=== PATIENT | male | born 1935 | race Caucasian/White ===

== ENCOUNTER 2018-03-20 01:10 | Inpatient (IN) | payer MEDICARE, BC ==
[2018-03-20 03:36] VITALS: BMI 29.8
[2018-03-20] MEDS ORDERED: Ondansetron ODT 4 MG TAB PO PRN (05:33)
[2018-03-20] MEDS ORDERED: Acetaminophen 325 MG TAB PO PRN (05:33)
[2018-03-20] MEDS: Gabapentin 300 MG CAP PO SCH ×3 (08:38→20:54)
[2018-03-20] MEDS: Enoxaparin Sodium 40 MG/0.4 ML SYRINGE SC SCH (08:38)
[2018-03-20] MEDS ORDERED: Aspirin 300 MG Suppository PR SCH (09:00)
[2018-03-20] MEDS ORDERED: Aspirin 81 mg Enteric Coated Tablet PO SCH ×2 (10:24→11:00)
[2018-03-20] MEDS: chlorproMAZINE HCl 25 MG TAB PO SCH (11:03)
--- NOTE | 2018-03-20 14:00 | PDOC.PN ---
- Subjective Encounter Start Date: 03/20/18 Encounter Start Time: 13:59 Patient yling in bed with family at bedside. He reports doing well this morning , no pain. Weakness noted on right side. CT showed chronic changes, no acute abnormality. - Objective Resuscitation Status - Order Detail: 03/20/18 05:33 Resuscitation Status Routine Resuscitation Status: DNAR: NO Resuscitation Discussed with: discussed with pt , as per pt wishes MAR Reviewed: Yes Vital Signs & Weight: Vital Signs (12 hours) Temp Pulse Pulse Pulse Resp BP BP 03/20/18 11:00 97.6 F 90 16 03/20/18 10:52 65 145/73 H 03/20/18 10:40 61 65 144/68 H 145/73 H 03/20/18 08:38 03/20/18 07:38 97.5 F L 93 16 03/20/18 05:25 97.8 F 66 20 03/20/18 02:30 98 F 76 20 BP Pulse Ox 03/20/18 11:00 132/68 97 03/20/18 10:52 03/20/18 10:40 03/20/18 08:38 96 03/20/18 07:38 139/79 96 03/20/18 05:25 183/89 H 98 03/20/18 02:30 157/91 H 98 Weight Weight 202 lb Radiology Reviewed by me: Yes Phys Exam - Physical Examination Constitutional: NAD HEENT: PERRLA, oral pharynx no lesions, 2+ tonsils Facial droop noted Neck: no nodes, no JVD, supple Respiratory: no wheezing, no rales, no rhonchi Cardiovascular: RRR, no significant murmur, no rub Gastrointestinal: soft, non-tender, no distention, positive bowel sounds Musculoskeletal: no edema, pulses present Neurological: normal sensation, moves all 4 limbs Weakness noted right side strength 3+ Lymphatic: no nodes Psychiatric: normal affect, A&O x 3 Skin: no rash, normal turgor, cap refill <2 seconds Dx/Plan (1) BPH (benign prostatic hyperplasia) Code(s): N40.0 - BENIGN PROSTATIC HYPERPLASIA WITHOUT LOWER URINRY TRACT SYMP Status: Acute (2) DJD (degenerative joint disease) Code(s): M19.90 - UNSPECIFIED OSTEOARTHRITIS, UNSPECIFIED SITE Status: Acute (3) HTN (hypertension) Code(s): I10 - ESSENTIAL (PRIMARY) HYPERTENSION Status: Acute (4) Left sided cerebral hemisphere cerebrovascular accident Code(s): I63.9 - CEREBRAL INFARCTION, UNSPECIFIED Status: Acute - Plan cont current plan of care, plan discussed w/ family, PT/OT, DVT proph w/lovenox * Continue on aspirin therapy, he is refusing statin at this time * Neurology services consulted * Await carotid doppler, echo and MRI brain * Further workup and/or management pending workup results * Continue home regimen for BP and other underlying conditions * Patient remains DNR * Palliative care consulted * PT/OT
--- NOTE | 2018-03-20 15:43 | ULT ---
CAROTID ULTRASOUND WITH WHARTON SCALE AND DOPPLER DUPLEX COLOR FLOW IMAGING SPECTRAL ANALYSIS PERFORMED: DATE: 03/20/18 Reference made to 06/19/14 exam. CLINICAL HISTORY: 83-year-old male with history of TIA/CVA. FINDINGS: There is scattered moderate atherosclerotic calcification of the carotid arteries. PEAK SYSTOLIC VELOCITY (CM/S): Right CCA 67 Left CCA 95 Right ICA 103 Left ICA 135 There is antegrade flow within the visualized bilateral vertebral arteries. IMPRESSION: 1. Mild stenosis of the right internal carotid artery. 2. Moderate (50-69%) stenosis of the left internal carotid artery. As clinically indicated, these findings may be further assessed with dedicated CTA or MRA of the neck to further evaluate. POS: [facility]
[2018-03-20] MEDS: Clopidogrel Bisulfate 75 MG TAB PO SCH (16:55)
--- NOTE | 2018-03-20 17:15 | MRI ---
MRI BRAIN WITH AND WITHOUT IV CONTRAST: 03/20/2018 HISTORY: Right arm weakness. Stroke-like symptoms. COMPARISON: 06/19/2014 FINDINGS: There are multiple scattered punctate areas of restricted diffusion involving the watershed distribut ion of the left cerebral hemisphere, with more numerable areas of signal abnormality seen throughout the left cerebral hemisphere in this distribution than on the prior study in 2013. There are a few p unctate areas also seen in the watershed distribution within the right cerebral hemisphere, but much less extensive than on the left. Findings are again likely attributable to multifocal areas of acute infarction, involving the watershed distribution of the left cerebral hemisphere, which could be on the basis of either hypoperfusion or embolic type phenomenon. No large acute cortical infarction is seen. Punctate foci of restricted diffusion are seen within the left caudate nucleus and body of the left caudate as well. There are scattered punctate and patchy areas of increased FLAIR and T2 weighted signal intensity in the periventricular and subcortical white matter, which are nonspecific, but similar to the prior dwight dy and likely attributable to chronic small vessel ischemic changes, although some of these areas may be related to minimal cytotoxic edema from watershed areas of infarction. The septum pellucidum and third ventricle are in the midline. The ventricular system is normal in si ze, shape, and position for the degree of sulcal atrophy. There is mild cerebral volume loss present . Appropriate flow voids are demonstrated at the base of the brain. There is evidence of an empty sella turcica, which was also present on the prior exam. There is mention of a focus of restricted diffusion in the left anterior cranial fossa. This area of restricted diffusion is also again seen on the current study, and this area does demonstrate decreas ed T1 weighted signal intensity with mild enhancement. This measures 8 mm and demonstrates character istics most suggestive of a small meningioma, measuring 8 mm, along the anterior left frontal bone. No additional abnormal areas of enhancement are seen after the administration of intravenous contrast . Multifocal areas of mucosal thickening are seen in the ethmoid air cells and the right maxillary antr um. The [place] lenses are not visualized on today's exam. No other interval change. IMPRESSION: 1. Multifocal punctate areas of recent/acute infarction involving the watershed distribution of the left cerebral hemisphere and, to a much lesser extent, areas in the right cerebral hemisphere. These findings may be on the basis of hypoperfusion or embolic type phenomenon. 2. Chronic small vessel ischemic change with cerebral volume loss. 3. Small focal hemangioma along the inner table of the left frontal bone. POS: [facility]
[2018-03-20] MEDS: Montelukast Sodium 10 mg Tablet PO SCH (20:53)
[2018-03-20] MEDS: Carvedilol 6.25 MG TAB PO SCH (20:54)
[2018-03-20] MEDS ORDERED: Carvedilol 6.25 MG TAB PO SCH (21:00)
[2018-03-21 05:07] LABS: #Basophils 0.1 thou/uL (0.0-0.2); #Eosinphils 0.4 thou/uL (0.0-0.7); #Lymphocytes 1.9 thou/uL (1.20-3.40); #Monocytes 0.7 thou/uL (0.11-0.59); %Basophils 1.3 % (0.0-1.0); %Eosinophils 5.5 % (0.0-10.0); %Lymphocytes 26.1 % (21.0-51.0); %Monocytes 10.4 % (0.0-10.0); %Neutrophils 56.7 % (42.0-75.0); Hemoglobin 11.7 g/dL (14.0-18.0); Mean Corpuscular HGB CONC 33.2 g/dL (32.0-36.0); Mean Corpuscular Hemoglobin 28.4 pg (27.0-31.0); Mean Corpuscular Volume 85.5 fL (78.0-98.0); Mean Platelet Volume 7.7 fL (7.4-10.4); Platelet Count 284 thou/uL (130-400); RBC Distribution Width 13.2 % (11.5-14.5); Red Blood Cell (RBC) Count 4.11 mill/uL (4.70-6.10); White Blood Cell (WBC) Count 7.1 thou/uL (4.8-10.8)
[2018-03-21 05:27] LABS: Anion Gap 14 mmol/L (10-20); BUN (Urea Nitrogen) 24 mg/dL (8.4-25.7); Calc. Creatinine Clearance 48 mL/min (70-130); Calcium 9.4 mg/dL (7.8-10.44); Carbon Dioxide 24 mmol/L (23-31); Cardiac Risk 3.6 (Less than 4.5); Chloride 106 mmol/L (98-107); Cholesterol 142 mg/dl (< 200 Desired); Estimated GFR-MDRD 43; Glucose 100 mg/dL (83-110); HDL Cholesterol 39 mg/dL (>60 Neg Risk); LDL Cholesterol, Calculated 82 mg/dL; Potassium 4.1 mmol/L (3.5-5.1); Sodium 140 mmol/L (136-145); Triglycerides 105 mg/dL (Less than 150)
--- NOTE | 2018-03-21 08:00 | HP ---
PRIMARY CARE DOCTOR: Michael Ayers MD CODE STATUS: DNR/DNI. The patient stated his wishes. TIME OF EVALUATION: 5:30 a.m. CHIEF COMPLAINT: Right-sided weakness. HISTORY OF PRESENT ILLNESS: This is an 83-year-old male patient with past medical history of hypertension, previous stroke, came to the hospital after having right-sided hemiparesis that started today, the symptom started so early, with no clear triggers, no alleviating factors, no chest pain, no palpitations. The patient on initial presentation was a candidate for tPA, but declined tPA treatment to the ER physician. Symptoms are severe. The patient is unable to do activities of daily living and basic motor functions due to new symptoms. REVIEW OF SYSTEMS: CONSTITUTIONAL: No fever, chills, or generalized weakness. RESPIRATORY: No cough, sputum production, or shortness of breath. CARDIOVASCULAR: No chest pain or palpitation. GASTROINTESTINAL: No nausea. No vomiting, diarrhea, or abdominal pain. RADIAL DRILL OPERATOR FOR PLASTIC: The patient has right-sided weakness and slurred speech. GENITOURINARY: No burning on urination. EXTREMITIES: No leg swelling. All other systems were reviewed and are negative, except for the findings mentioned above. PAST MEDICAL HISTORY: Positive for hypertension and previous stroke. SOCIAL HISTORY: No alcohol, no drugs. FAMILY HISTORY: Father had a CVA in old age. ALLERGIES: MORPHINE AND SULFA. HOME MEDICATIONS: Not obtained yet. PHYSICAL EXAMINATION: VITAL SIGNS: On presentation, blood pressure 183/89, with a heart rate of 66, respiratory rate was 20, oxygen saturation was 98, temperature 97.8. GENERAL APPEARANCE: The patient is alert, oriented, not in acute distress. HEENT: Eyes, normal conjunctivae. Moist oral mucosa. Anicteric. There is deviation of the mouth to the left, with right-sided facial palsy. NECK: No JVD. RESPIRATORY: Bilateral air entry. No rales, no wheezes. Symmetric expansion. CARDIOVASCULAR: Normal rate. Regular rhythm. No murmurs. No gallop. Hypertension. No edema. ABDOMEN: Soft. Normal bowel sounds. MUSCULOSKELETAL: Baseline range of motion and sternal tenderness. SKIN: Warm, intact. No pallor. No rash. No redness. Peripheral pulses are present. VASCULAR: Capillary refill seems to be intact. NEURO: The patient has right-sided weakness with slurred speech and right-sided facial droop. PSYCH: The patient is in good mood. No anxiety. Optimal judgment. DIAGNOSTIC DATA: EKG, sinus rhythm with occasional PVCs. RBBB. Left anterior bifascicular block. LABORATORY DATA: Pending. ASSESSMENT AND PLAN: The patient will be placed in the hospital with following medical problems. 1. Acute stroke. The patient has persistent right-sided weakness. There is no improvement since presentation. We will do a stroke protocol, consult the patient's swallow, Neurology. We will do MRI, carotid Doppler, echo. We will follow workup. We will treat accordingly. 2. History of hypertension. It is under control. We will allow permissive hypertension due to acute stroke. We will monitor and treat accordingly. 3. Bifascicular block, we will monitor on tele, no evidence of atrial fibrillation for irregular rhythm. 4. Deep vein thrombosis prophylaxis. ADDENDUM: Prior to transfer labs were reviewed. The patient has a GFR of 44. Troponin was negative. BUN 26, creatinine 1.6, sodium 143, chloride 105, carbon dioxide 27, total bilirubin 0.3, alkaline phosphatase 78. LFTs are normal. Coagulation is normal. Hemoglobin 12.9 with white count 9.9, hematocrit 37.8, MCV 80.3, platelet count 331. CT head without contrast showed moderate atrophy and chronic degenerative changes of aging. No acute intracranial findings. Scattered paranasal sinus disease. RISK ASSESSMENT: High risk due to presentation with a stroke. Job ID: [id number]
[2018-03-21] MEDS: Losartan 25 MG TAB PO SCH (08:14)
[2018-03-21] MEDS: chlorproMAZINE HCl 25 MG TAB PO SCH (08:14)
[2018-03-21] MEDS: Clopidogrel Bisulfate 75 MG TAB PO SCH ×2 (08:15→17:19)
[2018-03-21] MEDS: Aspirin 81 mg Enteric Coated Tablet PO SCH (08:15)
[2018-03-21] MEDS: NIFEdipine XL 30 MG TAB PO SCH (08:15)
[2018-03-21] MEDS: Enoxaparin Sodium 40 MG/0.4 ML SYRINGE SC SCH (08:15)
[2018-03-21] MEDS: Carvedilol 6.25 MG TAB PO SCH ×2 (08:16→20:18)
[2018-03-21] MEDS ORDERED: NIFEdipine XL 30 MG TAB PO SCH (09:00)
[2018-03-21] MEDS ORDERED: Non-Formulary Item 1 EACH (Losartan Potassium [Losartan Potassium] 1 TAB) PO SCH (09:00)
--- NOTE | 2018-03-21 16:24 | PDOC.EVN ---
Event Note - Event Note Event Note: with Elo DENTON, agree with management
--- NOTE | 2018-03-21 17:09 | PDOC.PN ---
- Subjective Encounter Start Date: 03/21/18 Encounter Start Time: 17:06 Patient sitting up in chair with family at bedside. He reports feeling better, no chest pain or shortness of breath. He is tolerating ASA and plavix. PT recommending rehab. - Objective Resuscitation Status - Order Detail: 03/20/18 05:33 Resuscitation Status Routine Resuscitation Status: DNAR: NO Resuscitation Discussed with: discussed with pt , as per pt wishes MAR Reviewed: Yes Vital Signs & Weight: Vital Signs (12 hours) Temp Pulse Resp BP BP Pulse Ox 03/21/18 16:00 98.5 F 54 L 20 130/65 97 03/21/18 12:00 97.6 F 61 20 118/87 97 03/21/18 08:15 61 139/76 03/21/18 08:14 99 03/21/18 08:08 97.9 F 61 20 139/76 99 Weight Weight 202 lb I&O: 03/20/18 03/21/18 03/22/18 06:59 06:59 06:59 Intake Total 750 Balance 750 Result Diagrams: 03/21/18 04:54 03/21/18 04:53 Radiology Reviewed by me: Yes Phys Exam - Physical Examination Constitutional: NAD HEENT: moist MMs, sclera anicteric, oral pharynx no lesions Neck: no nodes, no JVD, supple Respiratory: no wheezing, no rales, no rhonchi, clear to auscultation bilateral Cardiovascular: RRR, no significant murmur, no rub Gastrointestinal: soft, non-tender, no distention, positive bowel sounds Musculoskeletal: no edema, pulses present Neurological: normal sensation, moves all 4 limbs Weakness noted on right, facial droop Lymphatic: no nodes Psychiatric: normal affect, A&O x 3 Skin: no rash, normal turgor, cap refill <2 seconds Dx/Plan (1) BPH (benign prostatic hyperplasia) Code(s): N40.0 - BENIGN PROSTATIC HYPERPLASIA WITHOUT LOWER URINRY TRACT SYMP Status: Acute (2) DJD (degenerative joint disease) Code(s): M19.90 - UNSPECIFIED OSTEOARTHRITIS, UNSPECIFIED SITE Status: Acute (3) HTN (hypertension) Code(s): I10 - ESSENTIAL (PRIMARY) HYPERTENSION Status: Acute (4) Left sided cerebral hemisphere cerebrovascular accident Code(s): I63.9 - CEREBRAL INFARCTION, UNSPECIFIED Status: Acute - Plan cont current plan of care, plan discussed w/ family, PT/OT * Continue ASA and plavix, patient declining statin * PT/OT recommending rehab, consult placed for case management * Continue other home medications * Await cardiology evaluation, await echo
[2018-03-21] MEDS: Gabapentin 300 MG CAP PO SCH (20:18)
[2018-03-21] MEDS: Montelukast Sodium 10 mg Tablet PO SCH (20:19)
--- NOTE | 2018-03-21 20:26 | CON ---
DATE OF CONSULTATION: REASON FOR CONSULTATION: Dysrhythmia and recent stroke. HISTORY OF PRESENT ILLNESS: Mr. Charles is an 83-year-old gentleman who I saw four years ago. At that time, he presented with a stroke. He underwent NAIDA to assess his left atrial appendage. No thrombus present. He has not been seen and evaluated since that time. He recently presented with stroke like symptoms. He had a right-sided droop and right-sided weakness. This occurred after waking up. No chest pain, pressure, or other associated symptoms. No palpitations, syncope or presyncope present. On telemetry monitoring, he did have 18 beats of multifocal atrial tachycardia. He is asymptomatic. PAST MEDICAL HISTORY: Hypertension and CVA. ALLERGIES: MORPHINE, SULFA. SOCIAL HISTORY: No current tobacco or alcohol use. He is currently . He has a supportive daughter. HOME MEDICATIONS: Include; 1. Gabapentin. 2. Nifedipine. 3. Losartan. 4. Thorazine. 5. Singulair. 6. Carvedilol. REVIEW OF SYMPTOMS: A 10-point review of systems is reviewed and as above, otherwise negative. PHYSICAL EXAMINATION: VITAL SIGNS: Blood pressure 130/65, pulse 54, and temperature 98.5. GENERAL: Patient is a pleasant male who is in no acute distress. The patient appears their stated age. NEUROLOGIC: Right-sided weakness and facial droop. HEENT: Sclerae without icterus. Mouth has moist mucous membranes with normal pallor. NECK: No JVD. Carotid upstroke brisk. No bruits bilaterally. LUNGS: Clear to auscultation with unlabored respirations. BACK: No scoliosis or kyphosis. CARDIAC: Regular rate and rhythm with normal S1 and S2. No S3 or S4 noted. No significant rubs, murmurs, thrills, or gallops noted throughout the precordium. PMI is not displaced. There is no parasternal heave. ABDOMEN: Soft, nontender, nondistended. No peritoneal signs present. No hepatosplenomegaly. No abnormal striae. EXTREMITIES: 2+ femoral and 2+ dorsalis pedis pulses. No cyanosis, clubbing, or edema. SKIN: No gross abnormalities. PERTINENT LABORATORY DATA: Hemoglobin 11.7, hematocrit 35.1, creatinine 1.57. EKG normal sinus rhythm, nonspecific ST-T wave changes. Telemetry monitoring showed sinus rhythm with atrial tachycardia. IMPRESSION: 1. Recent stroke. 2. Multifocal atrial tachycardia. RECOMMENDATIONS: MRI suggested multifocal punctate areas of recent acute infarct involving the watershed area of the left cerebral hemisphere. This is consistent with hypoperfusion or embolic phenomenon. The patient may have underlying undiagnosed paroxysmal atrial fibrillation. I discussed this with the family. If so, we would recommend anticoagulation therapy. I have discussed with Sound provider, Milad SMITH. He is currently on Plavix. We have discussed with Dr. Feliciano Rahman. I also discussed proceeding with 3-week event recorder versus an implantable loop recorder to truly identify the underlying rhythm issue. Echo Doppler showed normal LVEF, mild LVH present. Otherwise, I have no further recommendations. We will be happy to arrange for an outpatient event recorder if needed. Job ID: [id number]
--- NOTE | 2018-03-21 23:02 | CON ---
DATE OF CONSULTATION: 03/21/2018 CONSULTING PHYSICIAN: Hospitalist Service. IMPRESSION: 1. Left frontal infarct. 2. Past history of stroke. 3. Aspirin failure. 4. History of statin intolerance. PLAN: 1. Add Plavix. 2. Consider trying a different brand of some statin other than atorvastatin. 3. Outpatient physical therapy program. HISTORY OF PRESENT ILLNESS: Mr. Charles is an 83-year-old gentleman who came in with acute right-sided weakness and dysarthria. Initial CT scan of the brain did not show any hemorrhage. Followup MRI showed an area of acute infarction involving the left frontal region with fairly extensive small-vessel ischemic changes, that were chronic. His carotid ultrasound did not show any extracranial stenosis. His cholesterol ratio was 3.6. His symptoms have improved somewhat since onset. He passed a swallow study. PAST MEDICAL HISTORY: As listed above. ALLERGIES: 1. MORPHINE. 2. SULFA. SOCIAL HISTORY: No tobacco or alcohol use. He exercises lightly on a regular basis. He lives independently. FAMILY HISTORY: Noncontributory. MEDICATIONS: Medication list was reviewed. REVIEW OF SYSTEMS: A 10-system review of systems was, otherwise. Unremarkable. PHYSICAL EXAMINATION: GENERAL: He is a well-nourished elderly gentleman, in no acute distress. VITAL SIGNS: Stable. He is afebrile. HEENT: Pupils are equal and reactive. Conjunctivae clear. Oropharynx clear. NECK: Supple. No lymphadenopathy. EXTREMITIES: No cyanosis, clubbing, or edema. NEUROLOGIC: He is alert and appropriate. His speech is fluent with only a subtle dysarthric quality. Cranial nerve exam shows flattening of the right nasolabial fold. Motor exam shows antigravity strength bilaterally with diminished rapid alternating movement in the right hand. He can walk independently. Sensations intact to light touch. No tremor or dysmetria is present. LABORATORY DATA: EKG showed some transient dysrhythmia. Echocardiogram is pending. SUMMARY: This elderly male with small vessel stroke resulting in some right-sided weakness. I agree with addition of Plavix. I would suggest trying an alternative statin. I would to be happy to follow up with him as an outpatient. Job ID: [id number]
[2018-03-22] MEDS: Losartan 25 MG TAB PO SCH (08:13)
[2018-03-22] MEDS: Enoxaparin Sodium 40 MG/0.4 ML SYRINGE SC SCH (08:14)
[2018-03-22] MEDS: Clopidogrel Bisulfate 75 MG TAB PO SCH (08:14)
[2018-03-22] MEDS: Aspirin 81 mg Enteric Coated Tablet PO SCH (08:14)
[2018-03-22] MEDS: NIFEdipine XL 30 MG TAB PO SCH (08:14)
[2018-03-22] MEDS: chlorproMAZINE HCl 25 MG TAB PO SCH (08:14)
[2018-03-22] MEDS: Carvedilol 6.25 MG TAB PO SCH ×2 (08:15→22:42)
--- NOTE | 2018-03-22 16:55 | PDOC.PN ---
- Subjective Encounter Start Date: 03/22/18 Encounter Start Time: 16:53 Patient lying in bed with family at bedside. He reports doing better today, worked with PT and tolerated well. CM explained possible discharge options and referral was sent. No chest pain, shortness of breath. He remains on ASA and plavix, Dr Grace recommending holter monitor and anticoagulation for questionable underlying a fib. - Objective Resuscitation Status - Order Detail: 03/20/18 05:33 Resuscitation Status Routine Resuscitation Status: DNAR: NO Resuscitation Discussed with: discussed with pt , as per pt wishes MAR Reviewed: Yes Vital Signs & Weight: Vital Signs (12 hours) Temp Pulse Resp BP BP Pulse Ox 03/22/18 15:55 97.8 F 60 16 136/69 98 03/22/18 11:54 98.2 F 59 L 16 113/61 96 03/22/18 08:17 99 03/22/18 08:15 130/65 03/22/18 08:14 66 130/75 03/22/18 07:49 98.4 F 66 16 130/75 99 Weight Weight 202 lb I&O: 03/21/18 03/22/18 03/23/18 06:59 06:59 06:59 Intake Total 750 1240 Balance 750 1240 Result Diagrams: 03/21/18 04:54 03/21/18 04:53 Radiology Reviewed by me: Yes Phys Exam - Physical Examination Constitutional: NAD HEENT: PERRLA, moist MMs, oral pharynx no lesions Neck: no nodes, no JVD, supple Respiratory: no wheezing, clear to auscultation bilateral Cardiovascular: RRR, no significant murmur, no rub Gastrointestinal: soft, non-tender, no distention, positive bowel sounds Musculoskeletal: no edema, pulses present Neurological: normal sensation, moves all 4 limbs right sided strength 4+ Lymphatic: no nodes Psychiatric: normal affect, A&O x 3 Skin: no rash, normal turgor, cap refill <2 seconds Dx/Plan (1) BPH (benign prostatic hyperplasia) Code(s): N40.0 - BENIGN PROSTATIC HYPERPLASIA WITHOUT LOWER URINRY TRACT SYMP Status: Acute (2) DJD (degenerative joint disease) Code(s): M19.90 - UNSPECIFIED OSTEOARTHRITIS, UNSPECIFIED SITE Status: Acute (3) HTN (hypertension) Code(s): I10 - ESSENTIAL (PRIMARY) HYPERTENSION Status: Acute (4) Left sided cerebral hemisphere cerebrovascular accident Code(s): I63.9 - CEREBRAL INFARCTION, UNSPECIFIED Status: Acute (5) Multifocal atrial tachycardia Code(s): I47.1 - SUPRAVENTRICULAR TACHYCARDIA Status: Acute - Plan cont current plan of care, plan discussed w/ family, PT/OT * Discussed with cardiology, recommending event monitor and anticoagulation for possible underlying undiagnosed a fib, started on eliquis today * Continue ASA and plavix. * Continue other home medications * CM involved to assist in disposition
[2018-03-22] MEDS: Gabapentin 300 MG CAP PO SCH (22:42)
[2018-03-22] MEDS: Montelukast Sodium 10 mg Tablet PO SCH (22:42)
[2018-03-22] MEDS: Apixaban 5 MG TAB PO SCH (22:42)
[2018-03-23] MEDS: chlorproMAZINE HCl 25 MG TAB PO SCH (09:49)
[2018-03-23] MEDS: Apixaban 5 MG TAB PO SCH (09:50)
[2018-03-23] MEDS: Losartan 25 MG TAB PO SCH (09:50)
[2018-03-23] MEDS: Aspirin 81 mg Enteric Coated Tablet PO SCH (09:50)
[2018-03-23] MEDS: Clopidogrel Bisulfate 75 MG TAB PO SCH (09:50)
[2018-03-23] MEDS: Carvedilol 6.25 MG TAB PO SCH (09:51)
[2018-03-23] MEDS: NIFEdipine XL 30 MG TAB PO SCH (09:52)
--- NOTE | 2018-03-23 13:24 | PRG ---
DATE OF SERVICE: SUBJECTIVE: Mr. Charles is doing well. He states he is regaining some strength in his right arm. No other complaints. OBJECTIVE: VITAL SIGNS: Blood pressure 128/68, pulse 67, and temperature 98.4. LUNGS: Clear to auscultation. HEART: Regular rate and rhythm. ABDOMEN: Soft, nontender, and nondistended. EXTREMITIES: No edema. IMPRESSION: Recent cerebrovascular accident, likely embolic. RECOMMENDATIONS: I agree with anticoagulation therapy. He has been placed on Eliquis. We recommended to assist for any significant dysrhythmia. It would be okay from my standpoint to discharge home with close outpatient followup. Job ID: [id number]
--- NOTE | 2018-03-23 13:52 | PDOC.PN ---
- Subjective Encounter Start Date: 03/23/18 Encounter Start Time: 13:50 Subjective: Seen and examined feeling better - Objective Resuscitation Status - Order Detail: 03/20/18 05:33 Resuscitation Status Routine Resuscitation Status: DNAR: NO Resuscitation Discussed with: discussed with pt , as per pt wishes Vital Signs & Weight: Vital Signs (12 hours) Temp Pulse Resp BP BP Pulse Ox 03/23/18 12:00 98.4 F 57 L 16 128/68 97 03/23/18 09:52 65 03/23/18 09:51 130/66 03/23/18 08:10 98 03/23/18 07:50 97.5 F L 53 L 16 130/66 98 03/23/18 04:00 97.7 F 62 18 109/61 98 Weight Weight 202 lb I&O: 03/22/18 03/23/18 03/24/18 06:59 06:59 06:59 Intake Total 1240 1250 480 Balance 1240 1250 480 Result Diagrams: 03/21/18 04:54 03/21/18 04:53 Phys Exam - Physical Examination Constitutional: NAD HEENT: PERRLA, moist MMs, sclera anicteric, TM's clear Neck: no nodes, no JVD, supple, full ROM Respiratory: no wheezing, no rales, no rhonchi, clear to auscultation bilateral Cardiovascular: RRR, no significant murmur, no rub Gastrointestinal: soft, non-tender, no distention, positive bowel sounds Dx/Plan (1) Multifocal atrial tachycardia Code(s): I47.1 - SUPRAVENTRICULAR TACHYCARDIA Status: Acute (2) BPH (benign prostatic hyperplasia) Code(s): N40.0 - BENIGN PROSTATIC HYPERPLASIA WITHOUT LOWER URINRY TRACT SYMP Status: Acute (3) DJD (degenerative joint disease) Code(s): M19.90 - UNSPECIFIED OSTEOARTHRITIS, UNSPECIFIED SITE Status: Acute (4) HTN (hypertension) Code(s): I10 - ESSENTIAL (PRIMARY) HYPERTENSION Status: Acute (5) Left sided cerebral hemisphere cerebrovascular accident Code(s): I63.9 - CEREBRAL INFARCTION, UNSPECIFIED Status: Acute - Plan plan discussed w/ family, PT/OT, sr. social media & mobile manager Out patient Holter monitoring per Cardiology -: Awaiting swing bed in [place] * .
[2018-03-23 15:45] VITALS: BP 136/66; TEMP 97.9
== END 2018-03-23 18:18 | disposition swing bed (61) | DRG 65 ==
LOC: 2SE 03:24 → PREINTOOBSV 03:24 → OBSVTOIN 05:33
PROVIDERS: ADMIT Hospitalist; ATTEND Hospitalist
DX: I63.9 Cerebral infarction, unspecified (principal); G81.91 Hemiplegia, unspecified affecting right dominant side; I45.2 Bifascicular block; I47.1 Supraventricular tachycardia; I10 Essential (primary) hypertension; M19.90 Unspecified osteoarthritis, unspecified site; N40.0 Benign prostatic hyperplasia without lower urinary tract symptoms; Z86.73 Personal history of transient ischemic attack (TIA), and cerebral infarction without residual deficits; Z88.5 Allergy status to narcotic agent; Z88.2 Allergy status to sulfonamides
CPT/HCPCS: 36415; 70553; 80048; 80061; 82565; 85025; 93306; 93880; J1650; Q0161

== ENCOUNTER 2019-08-24 06:49 | Outpatient (CLI) | payer MEDICARE, BC, OTHER ==
[2019-08-24 16:31] LABS: INR-International Normal Ratio 1.2; PTT 33.8 sec (22.9-36.1); Prothrombin Time 15.2 sec (12.0-14.7)
[2019-08-24 17:18] LABS: Hemoglobin 12.6 g/dL (14.0-18.0); Mean Corpuscular HGB CONC 33.7 g/dL (32.0-36.0); Mean Corpuscular Hemoglobin 28.5 pg (27.0-31.0); Mean Corpuscular Volume 84.7 fL (78.0-98.0); Mean Platelet Volume 8.6 fL (7.4-10.4); Platelet Count 281 thou/uL (130-400); RBC Distribution Width 13.6 % (11.5-14.5); Red Blood Cell (RBC) Count 4.42 mill/uL (4.70-6.10); White Blood Cell (WBC) Count 6.9 thou/uL (4.8-10.8)
[2019-08-24 17:57] LABS: Anion Gap 13 mmol/L (10-20); BUN (Urea Nitrogen) 22 mg/dL (8.4-25.7); Calc. Creatinine Clearance 0 mL/min (70-130); Calcium 9.4 mg/dL (7.8-10.44); Carbon Dioxide 26 mmol/L (23-31); Chloride 106 mmol/L (98-107); Estimated GFR-MDRD 41; Glucose 101 mg/dL (83-110); Potassium 4.6 mmol/L (3.5-5.1); Sodium 140 mmol/L (136-145)
[2019-08-25 13:11] LABS: SARS-CoV-2 MS2 Positive; SARS-CoV-2 N Gene Negative; SARS-CoV-2 S Gene Negative; SARS-CoV-2 orf1ab Negative
== END 2019-08-24 06:50 | disposition home or self-care (01) ==
LOC: LABBT 06:49
PROVIDERS: ATTEND Internal Medicine Cardiovascular Disease
DX: Z01.812 Encounter for preprocedural laboratory examination (principal); Z11.59 Encounter for screening for other viral diseases; I48.91 Unspecified atrial fibrillation
CPT/HCPCS: 80048; 85027; 85610; 85730; U0003; 87635

== ENCOUNTER 2021-04-29 09:43 | Outpatient (CLI) | payer MEDICARE, BC ==
[2021-04-29 11:28] LABS: Bilirubin Neg (Negative); Blood, Urine Negative (Negative); Clarity Clear (Clear); Glucose, Urine (Dipstick) Normal (Negative); Ketone, Urine Negative (Negative); Leukocyte Negative (Negative); Nitrite Negative (Negative); Protein, Urine (Dipstick) Negative (Neg-Trace); Urobilinogen Normal mg/dL (Less than 2)
[2021-04-29 11:36] LABS: #Basophils 0.1 10x3/uL (0.0-0.2); #Eosinphils 0.3 10x3/uL (0.0-0.5); #Monocytes 0.7 10x3/uL (0.0-1.1); #Neutrophils 3.2 10x3/uL (1.5-8.4); %Basophils 2.1 % (0.0-2.0); %Eosinophils 5.3 % (0.0-6.0); %Lymphocytes 25.5 % (18.0-47.0); %Monocytes 12.4 % (0.0-10.0); %Neutrophils 54.5 % (40.0-75.0); Hemoglobin 12.6 g/dL (13.5-17.5); Mean Corpuscular Hemoglobin 27.4 pg (27.0-33.0); Mean Corpuscular Volume 80.7 fl (81.2-95.1); Mean Platelet Volume 10.4 fl (7.4-10.4); Platelet Count 282 10x3/uL (150-450); RBC Distribution Width 15.4 % (11.5-14.5); White Blood Cell (WBC) Count 5.8 10x3/uL (3.5-10.5)
[2021-04-29 11:44] LABS: INR-International Normal Ratio 1.1; Prothrombin Time 11.7 sec (9.5-12.1)
[2021-04-29 11:46] LABS: Anion Gap 13 mmol/L (10-20); BUN (Urea Nitrogen) 27 mg/dL (8.4-25.7); Calc. Creatinine Clearance 0 mL/min (70-130); Calcium 9.2 mg/dL (7.8-10.44); Carbon Dioxide 25 mmol/L (23-31); Chloride 106 mmol/L (98-107); Glucose 100 mg/dL (83-110); Potassium 4.5 mmol/L (3.5-5.1); Sodium 139 mmol/L (136-145)
[2021-04-29 19:36] LABS: SARS-CoV-2 PCR by NAA Not Detected (NotDetected)
== END 2021-04-29 09:44 | disposition home or self-care (01) ==
LOC: LABBT 09:43
PROVIDERS: ATTEND Orthopaedic Surgery
DX: Z01.818 Encounter for other preprocedural examination (principal); M17.11 Unilateral primary osteoarthritis, right knee; Z20.822 Contact with and (suspected) exposure to COVID-19
CPT/HCPCS: 71046; 80048; 81003; 85025; 85610; 86850; 86900; 86901; 87081; 93005; U0003; U0005; 93010